=== PATIENT | male | born 1975 | race Caucasian/White ===

== ENCOUNTER 2018-02-06 13:04 | Observation (INO) | payer SELFPAY ==
[2018-02-06] MEDS ORDERED: Aspirin 81 MG Tab.Chew PO ONE (13:10)
[2018-02-06] MEDS ORDERED: Enoxaparin 100 MG/1 ML Syringe SUBCUT ONE (13:10)
[2018-02-06] MEDS ORDERED: Sodium Chloride 0.9% 2.5 ML Syringe FLUSH PRN (13:10)
[2018-02-06] MEDS ORDERED: Sodium Chloride 0.9% 10 ML Syringe FLUSH PRN (13:10)
[2018-02-06] MEDS ORDERED: Nitroglycerin 2% Oint 1 GM UD Packet TOP ONE (13:10)
--- NOTE | 2018-02-06 13:13 | EDM.PDOC ---
ED HPI GENERAL MEDICAL PROBLEM - General Chief Complaint: Chest Pain Stated Complaint: CHEST PAIN Time Seen by Provider: 02/06/18 13:10 - History of Present Illness INITIAL COMMENTS - FREE TEXT/NARRATIVE: HISTORY AND PHYSICAL: History of present illness: Patient's a 42-year-old white male with an unclear cardiac history but describes some type of thromboembolic cardiopulmonary phenomenon and for which he was on Coumadin for 1 month which was discontinued due to patient's intolerance of it he was changed to aspirin daily he denies ever having had a heart attack and cannot give any more details regarding this event. Patient presents today with shortness of breath and pleuritic chest pain started yesterday and became more acute prior to arrival is quite anxious on arrival. There's been no palpitations vomiting he has had some diaphoresis Review of systems: As per history of present illness and below otherwise all systems reviewed and negative. Past medical history: As per history of present illness and as reviewed below otherwise noncontributory. Surgical history: As per history of present illness and as reviewed below otherwise noncontributory. Social history: No reported history of drug or alcohol abuse. Family history: As per history of present illness and as reviewed below otherwise noncontributory. Physical exam: HEENT: Atraumatic, normocephalic, pupils reactive, negative for conjunctival pallor or scleral icterus, mucous membranes moist, throat clear, neck supple, nontender, trachea midline. Lungs: Clear to auscultation, breath sounds equal bilaterally, chest nontender. Heart: S1S2, regular, negative for clicks, rubs, or JVD. Abdomen: Soft, nondistended, nontender. Negative for masses or hepatosplenomegaly. Negative for costovertebral tenderness. Pelvis: Stable nontender. Genitourinary: Deferred. Rectal: Deferred. Extremities: Atraumatic, negative for cords or calf pain. Neurovascular unremarkable. Neuro: Awake, alert, oriented. Cranial nerves II through XII unremarkable. Cerebellum unremarkable. Motor and sensory unremarkable throughout. Exam nonfocal. Diagnostics: CBC CMP PT/INR troponin chest x-ray EKG d-dimer CTA chest Therapeutics: IV O2 monitor Lovenox milligram per kilogram subcutaneous aspirin 324 mg Nitropaste 1 inch Impression: #1 pleuritic chest pain #2 history of thromboembolic disease Definitive disposition and diagnosis as appropriate pending reevaluation and review of above. chest Pain Score (Numeric/FACES): 7 - Related Data Allergies Allergy/AdvReac Type Severity Reaction Status Date / Time No Known Allergies Allergy Verified 02/06/18 13:09 Home Meds: Home Meds . [No Known Home Meds] 02/06/18 [History] ED ROS GENERAL - Review of Systems Review Of Systems: ROS reveals no pertinent complaints other than HPI. ED EXAM, GENERAL - Physical Exam Exam: See Below (dictation) Course - Vital Signs Last Recorded V/S: Last Vital Signs Temp 36.4 C 02/06/18 13:09 Pulse 84 02/06/18 14:58 Resp 16 02/06/18 14:58 BP 126/77 02/06/18 14:58 Pulse Ox 96 02/06/18 14:58 - Orders/Labs/Meds Orders: Active Orders 24 hr Category Date Time Status Cardiac Monitoring [RC] . DIRECTED Care 02/06/18 13:10 Active EKG 12 Lead [EKG Documentation Completion] [RC] STAT Care 02/06/18 14:11 Active EKG Documentation Completion [RC] STAT Care 02/06/18 13:10 Active Oxygen Therapy, ED [RC] ASDIRECTED Care 02/06/18 13:10 Active Pulse Oximetry [RC] ASDIRECTED Care 02/06/18 13:10 Active DRUG SCREEN, URINE [URCHEM] Stat Lab 02/06/18 13:10 Ordered UA W/MICROSCOPIC [URIN] Stat Lab 02/06/18 13:10 Ordered Sodium Chloride 0.9% [Normal Saline] 1,000 ml Med 02/06/18 13:15 Active IV STAT Sodium Chloride 0.9% [Saline Flush] Med 02/06/18 13:10 Active 10 ml FLUSH ASDIRECTED PRN Sodium Chloride 0.9% [Saline Flush] Med 02/06/18 13:10 Active 2.5 ml FLUSH ASDIRECTED PRN Saline Lock Insert [OM.PC] Stat Oth 02/06/18 13:10 Ordered Medication Orders Sodium Chloride (Normal Saline) 1,000 mls @ 125 mls/hr IV STAT JOSE Last Admin: 02/06/18 13:21 Dose: 125 mls/hr Sodium Chloride (Saline Flush) 10 ml FLUSH ASDIRECTED PRN PRN Reason: Keep Vein Open Sodium Chloride (Saline Flush) 2.5 ml FLUSH ASDIRECTED PRN PRN Reason: Keep Vein Open Labs: Laboratory Tests 02/06/18 02/06/18 02/06/18 Range/Units 13:03 13:03 13:03 WBC 13.07 H (4.0-11.0) K/uL RBC 5.38 (4.50-5.90) M/uL Hgb 16.5 (13.0-17.0) g/dL Hct 46.0 (38.0-50.0) % MCV 85.5 (80.0-98.0) fL MCH 30.7 (27.0-32.0) pg MCHC 35.9 (31.0-37.0) g/dL RDW Std Deviation 39.9 (28.0-62.0) fl RDW Coeff of Cuca 13 (11.0-15.0) % Plt Count 195 (150-400) K/uL MPV 10.00 (7.40-12.00) fL Neut % (Auto) 63.9 (48.0-80.0) % Lymph % (Auto) 19.1 (16.0-40.0) % Wallace % (Auto) 10.1 (0.0-15.0) % Eos % (Auto) 6.7 (0.0-7.0) % Baso % (Auto) 0.2 (0.0-1.5) % Neut # (Auto) 8.4 H (1.4-5.7) K/uL Lymph # (Auto) 2.5 H (0.6-2.4) K/uL Wallace # (Auto) 1.3 H (0.0-0.8) K/uL Eos # (Auto) 0.9 H (0.0-0.7) K/uL Baso # (Auto) 0.0 (0.0-0.1) K/uL Nucleated RBC % 0.0 /100WBC Nucleated RBCs # 0 K/uL INR 0.98 D-Dimer, Quantitative 0.25 (0.0-0.52) mg/LFEU Sodium 142 (136-148) mmol/L Potassium 3.6 (3.5-5.1) mmol/L Chloride 104 (98-107) mmol/L Carbon Dioxide 28.2 (21.0-32.0) mmol/L BUN 14 (7.0-18.0) mg/dL Creatinine 1.0 (0.8-1.3) mg/dL Est Cr Clr Drug Dosing TNP Estimated GFR (MDRD) > 60.0 ml/min Glucose 83 (74-106) mg/dL Calcium 9.2 (8.5-10.1) mg/dL Total Bilirubin 1.7 H (0.2-1.0) mg/dL AST 16 (15-37) IU/L ALT 22 (14-63) IU/L Alkaline Phosphatase 109 (46-116) U/L Troponin I < 0.050 (0.000-0.056) ng/mL B-Natriuretic Peptide (<100) PG/ML Total Protein 8.0 (6.4-8.2) g/dL Albumin 4.2 (3.4-5.0) g/dL Globulin 3.8 H (2.0-3.5) g/dL Albumin/Globulin Ratio 1.1 L (1.3-2.8) 02/06/18 Range/Units 13:03 WBC (4.0-11.0) K/uL RBC (4.50-5.90) M/uL Hgb (13.0-17.0) g/dL Hct (38.0-50.0) % MCV (80.0-98.0) fL MCH (27.0-32.0) pg MCHC (31.0-37.0) g/dL RDW Std Deviation (28.0-62.0) fl RDW Coeff of Cuca (11.0-15.0) % Plt Count (150-400) K/uL MPV (7.40-12.00) fL Neut % (Auto) (48.0-80.0) % Lymph % (Auto) (16.0-40.0) % Wallace % (Auto) (0.0-15.0) % Eos % (Auto) (0.0-7.0) % Baso % (Auto) (0.0-1.5) % Neut # (Auto) (1.4-5.7) K/uL Lymph # (Auto) (0.6-2.4) K/uL Wallace # (Auto) (0.0-0.8) K/uL Eos # (Auto) (0.0-0.7) K/uL Baso # (Auto) (0.0-0.1) K/uL Nucleated RBC % /100WBC Nucleated RBCs # K/uL INR D-Dimer, Quantitative (0.0-0.52) mg/LFEU Sodium (136-148) mmol/L Potassium (3.5-5.1) mmol/L Chloride (98-107) mmol/L Carbon Dioxide (21.0-32.0) mmol/L BUN (7.0-18.0) mg/dL Creatinine (0.8-1.3) mg/dL Est Cr Clr Drug Dosing Estimated GFR (MDRD) ml/min Glucose (74-106) mg/dL Calcium (8.5-10.1) mg/dL Total Bilirubin (0.2-1.0) mg/dL AST (15-37) IU/L ALT (14-63) IU/L Alkaline Phosphatase (46-116) U/L Troponin I (0.000-0.056) ng/mL B-Natriuretic Peptide < 15 (<100) PG/ML Total Protein (6.4-8.2) g/dL Albumin (3.4-5.0) g/dL Globulin (2.0-3.5) g/dL Albumin/Globulin Ratio (1.3-2.8) Meds: Medications Generic Name Dose Route Start Last Admin Trade Name Freq PRN Reason Stop Dose Admin Sodium Chloride 1,000 mls @ 125 mls/hr 02/06/18 13:15 02/06/18 13:21 Normal Saline IV 125 mls/hr STAT JOSE Administration Sodium Chloride 10 ml 02/06/18 13:10 Saline Flush FLUSH ASDIRECTED PRN Keep Vein Open Sodium Chloride 2.5 ml 02/06/18 13:10 Saline Flush FLUSH ASDIRECTED PRN Keep Vein Open Discontinued Medications Generic Name Dose Route Start Last Admin Trade Name Freq PRN Reason Stop Dose Admin Aspirin 324 mg 02/06/18 13:10 02/06/18 13:10 Aspirin PO 02/06/18 13:11 324 mg ONETIME ONE Administration Enoxaparin Sodium 100 mg 02/06/18 13:10 02/06/18 13:18 Lovenox SUBCUT 02/06/18 13:11 100 mg ONETIME ONE Administration Iopamidol 60 ml 02/06/18 14:42 02/06/18 14:45 Isovue-370 (76%) IVPUSH 02/06/18 14:43 60 ml ONETIME ONE Administration Ketorolac Tromethamine 30 mg 02/06/18 14:21 02/06/18 14:52 Toradol IVPUSH 02/06/18 14:22 30 mg ONETIME ONE Administration Nitroglycerin 1 gm 02/06/18 13:10 02/06/18 13:18 Nitro-Bid 2% TOP 02/06/18 13:11 1 gm ONETIME ONE Administration Departure - Departure Time of Disposition: 15:02 Disposition: Refer to Observation Condition: Good Clinical Impression: Chest pain - Discharge Information Referrals: PCP,None [Primary Care Provider] - Forms: ED Department Discharge - My Orders Last 24 Hours: My Active Orders 02/06/18 13:10 Cardiac Monitoring [RC] . DIRECTED EKG Documentation Completion [RC] STAT Oxygen Therapy, ED [RC] ASDIRECTED Pulse Oximetry [RC] ASDIRECTED DRUG SCREEN, URINE [URCHEM] Stat UA W/MICROSCOPIC [URIN] Stat Sodium Chloride 0.9% [Saline Flush] 10 ml FLUSH ASDIRECTED PRN Sodium Chloride 0.9% [Saline Flush] 2.5 ml FLUSH ASDIRECTED PRN Saline Lock Insert [OM.PC] Stat 02/06/18 13:15 Sodium Chloride 0.9% [Normal Saline] 1,000 ml IV STAT 02/06/18 14:11 EKG 12 Lead [EKG Documentation Completion] [RC] STAT - Assessment/Plan Last 24 Hours: My Active Orders 02/06/18 13:10 Cardiac Monitoring [RC] . DIRECTED EKG Documentation Completion [RC] STAT Oxygen Therapy, ED [RC] ASDIRECTED Pulse Oximetry [RC] ASDIRECTED DRUG SCREEN, URINE [URCHEM] Stat UA W/MICROSCOPIC [URIN] Stat Sodium Chloride 0.9% [Saline Flush] 10 ml FLUSH ASDIRECTED PRN Sodium Chloride 0.9% [Saline Flush] 2.5 ml FLUSH ASDIRECTED PRN Saline Lock Insert [OM.PC] Stat 02/06/18 13:15 Sodium Chloride 0.9% [Normal Saline] 1,000 ml IV STAT 02/06/18 14:11 EKG 12 Lead [EKG Documentation Completion] [RC] STAT
[2018-02-06] MEDS: Sodium Chloride 0.9% 1,000 ML IV SCH ×3 (13:21→23:00)
[2018-02-06 13:48] LABS: CHLORIDE,CL 104 mmol/L (98-107); SODIUM,NA 142 mmol/L (136-148)
[2018-02-06] MEDS ORDERED: Ketorolac 30 MG/ML SDV IVPUSH ONE (14:21)
[2018-02-06] MEDS ORDERED: Iopamidol 755 Mg/ML 100 ML Bottle IVPUSH ONE (14:42)
--- NOTE | 2018-02-06 14:59 | CT ---
EXAMINATION: CTA chest HISTORY: Pain COMPARISON: Radiographs dated 11/14/2017 TECHNIQUE: Axial CT images obtained through the chest following the administration of 60 mL of Isovue -370 left antecubital fossa. Coronal and sagittal reconstructions obtained. FINDINGS: There is an area of consolidation within the superior left lower lobe. Trace left pleural e ffusion. Tiny calcified granuloma within the lateral right upper lobe. The heart is normal in size wi thout a pericardial effusion. A few mildly prominent left hilar lymph nodes noted. Central airways ar e clear. Thoracic aorta is normal in caliber. The main and central pulmonary arteries are patent. No axillary lymphadenopathy. The visualized images of the upper abdomen appear normal. No suspicious osseous abnormalities identified. IMPRESSION: 1. Left lower lobe consolidation likely representing pneumonia. 2. Left hilar lymphadenopathy likely reactive. 3. No pulmonary embolism identified.
[2018-02-06] MEDS ORDERED: Albuterol/Ipratropium 3.0-0.5 MG/3 ML Neb Soln NEB PRN (16:32)
[2018-02-06] MEDS ORDERED: Ondansetron 4 MG Tab.DIS PO PRN (16:32)
[2018-02-06] MEDS ORDERED: Azithromycin 250 MG Tab PO SCH (16:45)
[2018-02-06] MEDS ORDERED: Enoxaparin 40 MG/0.4 ML Syringe SUBCUT SCH (16:45)
[2018-02-06] MEDS: Levofloxacin/Dextrose 5%-Water 750 MG in Premix Bag 1 BAG IV ONE ×2 (16:58→17:04)
--- NOTE | 2018-02-06 17:01 | PCM.HP ---
H&P History of Present Illness - General Date of Service: 02/06/18 Admit Problem/Dx: Admission Diagnosis/Problem Admission Diagnosis/Problem Chest pain Source of Information: Patient History Limitations: Reports: No Limitations - History of Present Illness Initial Comments - Free Text/Narative: 42-year-old male presented to the ER with left-sided chest pain. Patient was worried because there is a history of the patient having prior clots in his lungs. He was on Coumadin for 1 month but this was discontinued because the patient was unable to tolerate it. He was subsequently switched to aspirin. He has some mild shortness of breath and a sharp pain on the left side of his chest with deep inspiration. This started yesterday and has continually gotten worse. The pain does not radiate and he denies any diaphoresis, nausea, vomiting , palpitations, calf pain. No prior history of heart attack or stroke. Patient denies any drug use. He does smoke one pack per day over the past 18 years. Patient has not been sick recently. He does not take any medications at home. ER course: CBC shows a mildly elevated white count of 13,000. D-dimer was negative. Chest CT showed no evidence of PE but did show a left lower lobe infiltrate consistent with pneumonia. CMP and initial troponin were negative. Patient was requiring 2 L nasal cannula to maintain his oxygen saturation greater than 94%. chest Pain Score (Numeric/FACES): 7 - Related Data Allergies/Adverse Reactions: Allergies Allergy/AdvReac Type Severity Reaction Status Date / Time No Known Allergies Allergy Verified 02/06/18 13:09 Home Medications: Home Meds . [No Known Home Meds] 02/06/18 [History] Past Medical History HEENT History: Reports: None Cardiovascular History: Reports: Other (See Below) Other Cardiovascular History: reports blot clot in heart Respiratory History: Reports: None Gastrointestinal History: Reports: None Genitourinary History: Reports: None Musculoskeletal History: Reports: Other (See Below) Neurological History: Reports: None Psychiatric History: Reports: None Endocrine/Metabolic History: Reports: None Hematologic History: Reports: None Immunologic History: Reports: None Oncologic (Cancer) History: Reports: None Dermatologic History: Reports: None - Past Surgical History Head Surgeries/Procedures: Reports: None HEENT Surgical History: Reports: None Cardiovascular Surgical History: Reports: None Respiratory Surgical History: Reports: None GI Surgical History: Reports: None Male Surgical History: Reports: None Endocrine Surgical History: Reports: None Neurological Surgical History: Reports: None Musculoskeletal Surgical History: Reports: None Oncologic Surgical History: Reports: None Dermatological Surgical History: Reports: None Social & Family History - Family History Family Medical History: Noncontributory - Tobacco Use Smoking Status *Q: Current Every Day Smoker Years of Tobacco use: 18 Packs/Tins Daily: 0.5 Used Tobacco, but Quit: No Second Hand Smoke Exposure: No - Caffeine Use Caffeine Use: Reports: Coffee, Soda - Alcohol Use Date of Last Drink: 02/04/18 - Recreational Drug Use Recreational Drug Use: No H&P Review of Systems - Review of Systems: Review Of Systems: See Below General: Reports: No Symptoms HEENT: Reports: No Symptoms Pulmonary: Reports: No Symptoms Cardiovascular: Reports: Chest Pain Gastrointestinal: Reports: No Symptoms Genitourinary: Reports: No Symptoms Musculoskeletal: Reports: No Symptoms Skin: Reports: No Symptoms Psychiatric: Reports: No Symptoms Neurological: Reports: No Symptoms Hematologic/Lymphatic: Reports: No Symptoms Immunologic: Reports: No Symptoms Exam - Exam Exam: See Below - Vital Signs Vital Signs: Last Vital Signs Temp 97.6 F 02/06/18 13:09 Pulse 84 02/06/18 14:58 Resp 16 02/06/18 14:58 BP 126/77 02/06/18 14:58 Pulse Ox 96 02/06/18 14:58 Weight: 487 lb 3.545 oz - Exam Quality Assessment: DVT Prophylaxis (SCDs, Lovenox) General: Alert, Oriented, Cooperative HEENT: Conjunctiva Clear, Hearing Intact, Mucosa Moist & [place]ck: Supple, Trachea Midline, 2 Lungs: Clear to Auscultation, Normal Respiratory Effort Cardiovascular: Regular Rate, Regular Rhythm GI/Abdominal Exam: Normal Bowel Sounds, Soft, Non-Tender, No Organomegaly, No Distention, No Abnormal Bruit, No Mass, Pelvis Stable Extremities: Normal Inspection, Normal Range of Motion, Non-Tender, No Pedal Edema, Normal Capillary Refill Peripheral Pulses: 2+: Radial (L), Radial (R), Posterior Tibial (L), Posterior Tibial (R) Skin: Warm, Dry, Intact Neuro Extensive - Mental Status: Alert, Oriented x3, Normal Mood/Affect, Normal Cognition Psychiatric: Alert, Normal Affect, Normal Mood - Patient Data Lab Results Last 24 hrs: Laboratory Results - last 24 hr 02/06/18 02/06/18 02/06/18 Range/Units 13:03 13:03 13:03 WBC 13.07 H (4.0-11.0) K/uL RBC 5.38 (4.50-5.90) M/uL Hgb 16.5 (13.0-17.0) g/dL Hct 46.0 (38.0-50.0) % MCV 85.5 (80.0-98.0) fL MCH 30.7 (27.0-32.0) pg MCHC 35.9 (31.0-37.0) g/dL RDW Std Deviation 39.9 (28.0-62.0) fl RDW Coeff of Cuca 13 (11.0-15.0) % Plt Count 195 (150-400) K/uL MPV 10.00 (7.40-12.00) fL Neut % (Auto) 63.9 (48.0-80.0) % Lymph % (Auto) 19.1 (16.0-40.0) % [place] % (Auto) 10.1 (0.0-15.0) % Eos % (Auto) 6.7 (0.0-7.0) % Baso % (Auto) 0.2 (0.0-1.5) % Neut # (Auto) 8.4 H (1.4-5.7) K/uL Lymph # (Auto) 2.5 H (0.6-2.4) K/uL [place] # (Auto) 1.3 H (0.0-0.8) K/uL Eos # (Auto) 0.9 H (0.0-0.7) K/uL Baso # (Auto) 0.0 (0.0-0.1) K/uL Nucleated RBC % 0.0 /100WBC Nucleated RBCs # 0 K/uL INR 0.98 D-Dimer, Quantitative 0.25 (0.0-0.52) mg/LFEU Sodium 142 (136-148) mmol/L Potassium 3.6 (3.5-5.1) mmol/L Chloride 104 (98-107) mmol/L Carbon Dioxide 28.2 (21.0-32.0) mmol/L BUN 14 (7.0-18.0) mg/dL Creatinine 1.0 (0.8-1.3) mg/dL Est Cr Clr Drug Dosing TNP Estimated GFR (MDRD) > 60.0 ml/min Glucose 83 (74-106) mg/dL Calcium 9.2 (8.5-10.1) mg/dL Total Bilirubin 1.7 H (0.2-1.0) mg/dL AST 16 (15-37) IU/L ALT 22 (14-63) IU/L Alkaline Phosphatase 109 (46-116) U/L Troponin I < 0.050 (0.000-0.056) ng/mL B-Natriuretic Peptide (<100) PG/ML Total Protein 8.0 (6.4-8.2) g/dL Albumin 4.2 (3.4-5.0) g/dL Globulin 3.8 H (2.0-3.5) g/dL Albumin/Globulin Ratio 1.1 L (1.3-2.8) 02/06/18 Range/Units 13:03 WBC (4.0-11.0) K/uL RBC (4.50-5.90) M/uL Hgb (13.0-17.0) g/dL Hct (38.0-50.0) % MCV (80.0-98.0) fL MCH (27.0-32.0) pg MCHC (31.0-37.0) g/dL RDW Std Deviation (28.0-62.0) fl RDW Coeff of Cuca (11.0-15.0) % Plt Count (150-400) K/uL MPV (7.40-12.00) fL Neut % (Auto) (48.0-80.0) % Lymph % (Auto) (16.0-40.0) % [place] % (Auto) (0.0-15.0) % Eos % (Auto) (0.0-7.0) % Baso % (Auto) (0.0-1.5) % Neut # (Auto) (1.4-5.7) K/uL Lymph # (Auto) (0.6-2.4) K/uL [place] # (Auto) (0.0-0.8) K/uL Eos # (Auto) (0.0-0.7) K/uL Baso # (Auto) (0.0-0.1) K/uL Nucleated RBC % /100WBC Nucleated RBCs # K/uL INR D-Dimer, Quantitative (0.0-0.52) mg/LFEU Sodium (136-148) mmol/L Potassium (3.5-5.1) mmol/L Chloride (98-107) mmol/L Carbon Dioxide (21.0-32.0) mmol/L BUN (7.0-18.0) mg/dL Creatinine (0.8-1.3) mg/dL Est Cr Clr Drug Dosing Estimated GFR (MDRD) ml/min Glucose (74-106) mg/dL Calcium (8.5-10.1) mg/dL Total Bilirubin (0.2-1.0) mg/dL AST (15-37) IU/L ALT (14-63) IU/L Alkaline Phosphatase (46-116) U/L Troponin I (0.000-0.056) ng/mL B-Natriuretic Peptide < 15 (<100) PG/ML Total Protein (6.4-8.2) g/dL Albumin (3.4-5.0) g/dL Globulin (2.0-3.5) g/dL Albumin/Globulin Ratio (1.3-2.8) Result Diagrams: 02/06/18 13:03 02/06/18 13:03 - Problem List (1) Pneumonia SNOMED Code(s): 113644493 ICD Code: J18.9 - PNEUMONIA, UNSPECIFIED ORGANISM Status: Acute Priority : High Current Visit: Yes (2) Chest pain SNOMED Code(s): 77057721 ICD Code: R07.9 - CHEST PAIN, UNSPECIFIED Status: Acute Priority: High Current Visit: Yes Problem List Initiated/Reviewed/Updated: Yes Orders Last 24hrs: Active Orders 24 hr Category Date Time Status Patient Status [ADT] Stat ADT 02/06/18 15:03 Active Cardiac Monitoring [RC] Q8H Care 02/06/18 13:10 Active EKG 12 Lead [EKG Documentation Completion] [RC] STAT Care 02/06/18 14:11 Active EKG Documentation Completion [RC] STAT Care 02/06/18 13:10 Active Height and Weight [RC] DAILY Care 02/06/18 16:29 Active Intake and Output [RC] QSHIFT Care 02/06/18 16:30 Active Notify Provider Vital Signs [RC] ASDIRECTED Care 02/06/18 16:31 Active Oxygen Therapy [RC] PRN Care 02/06/18 16:29 Active Oxygen Therapy [RC] PRN Care 02/06/18 16:32 Active Oxygen Therapy, ED [RC] ASDIRECTED Care 02/06/18 13:10 Active Pulse Oximetry [RC] ASDIRECTED Care 02/06/18 13:10 Active Pulse Oximetry [RC] PRN Care 02/06/18 16:30 Active RT Aerosol Therapy [RC] ASDIRECTED Care 02/06/18 16:37 Active Up With Assistance [RC] ASDIRECTED Care 02/06/18 16:29 Active VTE/DVT Education [RC] PER UNIT ROUTINE Care 02/06/18 16:29 Active VTE/DVT Education [RC] PER UNIT ROUTINE Care 02/06/18 16:32 Active Vital Signs [RC] Q4H Care 02/06/18 16:29 Active Vital Signs [RC] Q4H Care 02/06/18 16:32 Active Heart Healthy Diet [DIET] Diet 02/06/18 Breakfast Active BASIC METABOLIC PANEL,BMP [CHEM] AM Lab 02/07/18 05:11 Ordered BASIC METABOLIC PANEL,BMP [CHEM] AM Lab 02/08/18 05:11 Ordered BASIC METABOLIC PANEL,BMP [CHEM] AM Lab 02/09/18 05:11 Ordered CBC WITH AUTO DIFF [HEME] AM Lab 02/07/18 05:11 Ordered CBC WITH AUTO DIFF [HEME] AM Lab 02/08/18 05:11 Ordered CBC WITH AUTO DIFF [HEME] AM Lab 02/09/18 05:11 Ordered DRUG SCREEN, URINE [URCHEM] Stat Lab 02/06/18 13:10 Ordered MAGNESIUM [CHEM] Routine Lab 02/06/18 13:03 Received TROPONIN I [CHEM] Q6H Lab 02/06/18 19:00 Ordered TROPONIN I [CHEM] Q6H Lab 02/07/18 01:00 Ordered UA W/MICROSCOPIC [URIN] Stat Lab 02/06/18 13:10 Ordered Acetaminophen [Tylenol] Med 02/06/18 16:32 Active 650 mg PO Q4H PRN Albuterol/Ipratropium [DuoNeb 3.0-0.5 MG/3 ML] Med 02/06/18 16:32 Active 3 ml NEB Q4HRRT PRN Azithromycin [Zithromax] Med 02/06/18 16:45 Active 500 mg PO Q24H Enoxaparin [Lovenox] Med 02/06/18 16:45 Active 40 mg SUBCUT Q24H Levofloxacin/Dextrose 5%-Water [Levaquin in D5W 750 MG/ Med 02/06/18 16:38 Active 150 ML] 750 mg Premix Bag 1 bag IV ONETIME Ondansetron [Zofran ODT] Med 02/06/18 16:32 Active 4 mg PO Q4H PRN Sodium Chloride 0.9% [Normal Saline] 1,000 ml Med 02/06/18 13:15 Active IV STAT Sodium Chloride 0.9% [Saline Flush] Med 02/06/18 13:10 Active 10 ml FLUSH ASDIRECTED PRN Sodium Chloride 0.9% [Saline Flush] Med 02/06/18 13:10 Active 2.5 ml FLUSH ASDIRECTED PRN cefTRIAXone [Rocephin] 1,000 mg Med 02/06/18 18:00 Active Dextrose 5% in Water 50 ml IV Q24H Saline Lock Insert [OM.PC] Stat Oth 02/06/18 13:10 Ordered Sequential Compression Device [OM.PC] Per Unit Routine Oth 02/06/18 16:32 Ordered Medication Orders Acetaminophen (Tylenol) 650 mg PO Q4H PRN PRN Reason: Pain (Mild 1-3)/fever Albuterol/Ipratropium (Duoneb 3.0-0.5 Mg/3 Ml) 3 ml NEB Q4HRRT PRN PRN Reason: Shortness Of Breath/wheezing Azithromycin (Zithromax) 500 mg PO Q24H JOSE Enoxaparin Sodium (Lovenox) 40 mg SUBCUT Q24H JOSE Sodium Chloride (Normal Saline) 1,000 mls @ 125 mls/hr IV STAT JOSE Last Admin: 02/06/18 16:34 Dose: 125 mls/hr Infusion: 02/06/18 16:34 Dose: 125 mls/hr Admin: 02/06/18 13:21 Dose: 125 mls/hr Levofloxacin/Dextrose 750 mg/ (Premix) 150 mls @ 100 mls/hr IV ONETIME ONE Stop: 02/06/18 18:07 Ceftriaxone Sodium 1,000 mg/ (Dextrose/Water) 50 mls @ 100 mls/hr IV Q24H JOSE Ondansetron HCl (Zofran Odt) 4 mg PO Q4H PRN PRN Reason: nausea, able to take PO Sodium Chloride (Saline Flush) 10 ml FLUSH ASDIRECTED PRN PRN Reason: Keep Vein Open Sodium Chloride (Saline Flush) 2.5 ml FLUSH ASDIRECTED PRN PRN Reason: Keep Vein Open Assessment/Plan Comment:: 42-year-old male being admitted with chest pain most likely secondary to left- sided pneumonia. #1. Left-sided pneumonia: -Patient will be started on Rocephin and azithromycin IV. -Tylenol available as needed for fever or pain. -Follow white count with daily CBC. #2. Chest pain: -This is most likely secondary to the patient's left-sided pneumonia. However, we will trend his troponins. -Patient will be placed on telemetry. -Magnesium is pending. DVT prophylaxis: SCDs, Lovenox. Disposition: 1-2 days pending improvement.
[2018-02-06] MEDS ORDERED: cefTRIAXone 1,000 MG in Dextrose 5% in Water 50 ML IV SCH ×2 (18:00)
[2018-02-06] MEDS: Acetaminophen 325 MG Tab PO PRN (19:40)
[2018-02-06] MEDS: traMADol 50 MG Tab PO PRN (21:03)
[2018-02-07] MEDS: Acetaminophen 325 MG Tab PO PRN (06:16)
[2018-02-07 06:22] LABS: CHLORIDE,CL 108 mmol/L (98-107); SODIUM,NA 142 mmol/L (136-148)
[2018-02-07 08:08] VITALS: BP 133/71
[2018-02-07] MEDS: traMADol 50 MG Tab PO PRN (08:11)
[2018-02-07] MEDS: Sodium Chloride 0.9% 1,000 ML IV SCH (08:13)
--- NOTE | 2018-02-08 14:18 | PCM.DCSUM1 ---
Discharge Summary - Hospital Course Free Text/Narrative:: Admission diagnosis: #1. Chest pain likely secondary to pneumonia Discharge diagnosis: #2. Chest pain likely secondary to pneumonia, improved 42-year-old male that was admitted with chest pain and for an ACS rule out. Patient presented to the ER with chest pain. Initial white blood cell count was 13.1. He does have a history of a clotting disorder and so a CT chest was done which showed no evidence of PE but did show a left lower lobe infiltrate. Patient was subsequently started on azithromycin and Rocephin. His white blood cell count improved to 9.2 at the time of discharge. Serial troponins 3 were negative. BNP, UA, toxicology screen and d-dimer were all negative. CMP was unremarkable. Patient was placed on telemetry which showed normal sinus rhythm and a heart rate of 50-70 bpm. At the time of discharge, the patient was tolerating oral intake, voiding appropriately and ambulating without assistance. Chest pain had improved significantly from admission. - Discharge Data Discharge Date: 02/07/18 Discharge Disposition: Home, Self-Care 01 Condition: Stable - Discharge Diagnosis/Problem(s) (1) Pneumonia SNOMED Code(s): 346415846 ICD Code: J18.9 - PNEUMONIA, UNSPECIFIED ORGANISM Status: Acute Priority : High (2) Chest pain SNOMED Code(s): 11917724 ICD Code: R07.9 - CHEST PAIN, UNSPECIFIED Status: Acute Priority: High - Patient Instructions Diet: Usual Diet as Tolerated Activity: As Tolerated Driving: May Drive Today Showering/Bathing: May Shower Notify Provider of: Fever, Increased Pain, Nausea and/or Vomiting - Discharge Plan Prescriptions/Med Rec: Azithromycin 500 mg PO DAILY #5 tablet Home Medications: Home Meds Azithromycin 500 mg PO DAILY #5 tablet 02/07/18 [Rx] Patient Handouts: Azithromycin tablets, Community-Acquired Pneumonia, Adult, [id number] Referrals: Ludwin Daniel MD [Resident] - 02/15/18 2:30 pm - Discharge Summary/Plan Comment DC Time >30 min.: No Discharge Summary/Plan Comment: Admission diagnosis: #1. Chest pain likely secondary to pneumonia Discharge diagnosis: #2. Chest pain likely secondary to pneumonia, improved 42-year-old male that was admitted with chest pain and for an ACS rule out. Patient presented to the ER with chest pain. Initial white blood cell count was 13.1. He does have a history of a clotting disorder and so a CT chest was done which showed no evidence of PE but did show a left lower lobe infiltrate. Patient was subsequently started on azithromycin and Rocephin. His white blood cell count improved to 9.2 at the time of discharge. Serial troponins 3 were negative. BNP, UA, toxicology screen and d-dimer were all negative. CMP was unremarkable. Patient was placed on telemetry which showed normal sinus rhythm and a heart rate of 50-70 bpm. At the time of discharge, the patient was tolerating oral intake, voiding appropriately and ambulating without assistance. Chest pain had improved significantly from admission. Discharge plan: #1. Prescription given for azithromycin 500 mg daily for the next 5 days. #2. Patient will follow-up with his PCP, Dr. Daniel. - Patient Data Vitals - Most Recent: Last Vital Signs Temp 97.2 F 02/07/18 08:00 Pulse 77 02/07/18 08:00 Resp 18 02/07/18 08:00 BP 133/71 02/07/18 08:00 Pulse Ox 97 02/07/18 08:00 Weight - Most Recent: 487 lb 3.545 oz Med Orders - Current: Current Medications Discontinued Medications Acetaminophen (Tylenol) 650 mg PO Q4H PRN PRN Reason: Pain (Mild 1-3)/fever Last Admin: 02/07/18 06:16 Dose: 650 mg Albuterol/Ipratropium (Duoneb 3.0-0.5 Mg/3 Ml) 3 ml NEB Q4HRRT PRN PRN Reason: Shortness Of Breath/wheezing Aspirin (Aspirin) 324 mg PO ONETIME ONE Stop: 02/06/18 13:11 Last Admin: 02/06/18 13:10 Dose: 324 mg Azithromycin (Zithromax) 500 mg PO Q24H JOSE Last Admin: 02/06/18 16:58 Dose: 500 mg Enoxaparin Sodium (Lovenox) 100 mg SUBCUT ONETIME ONE Stop: 02/06/18 13:11 Last Admin: 02/06/18 13:18 Dose: 100 mg Enoxaparin Sodium (Lovenox) 40 mg SUBCUT Q24H JOSE Last Admin: 02/06/18 17:08 Dose: Not Given Sodium Chloride (Normal Saline) 1,000 mls @ 125 mls/hr IV STAT JOSE Last Infusion: 02/06/18 22:50 Dose: 125 mls/hr Levofloxacin/Dextrose 750 mg/ (Premix) 150 mls @ 100 mls/hr IV ONETIME ONE Stop: 02/06/18 18:07 Last Admin: 02/06/18 17:04 Dose: Not Given Ceftriaxone Sodium 1,000 mg/ (Dextrose/Water) 50 mls @ 100 mls/hr IV Q24H JOSE Last Admin: 02/06/18 17:27 Dose: 100 mls/hr Sodium Chloride (Normal Saline) 1,000 mls @ 125 mls/hr IV ASDIRECTED JOSE Last Admin: 02/07/18 08:13 Dose: 125 mls/hr Iopamidol (Isovue-370 (76%)) 60 ml IVPUSH ONETIME ONE Stop: 02/06/18 14:43 Last Admin: 02/06/18 14:45 Dose: 60 ml Ketorolac Tromethamine (Toradol) 30 mg IVPUSH ONETIME ONE Stop: 02/06/18 14:22 Last Admin: 02/06/18 14:52 Dose: 30 mg Nitroglycerin (Nitro-Bid 2%) 1 gm TOP ONETIME ONE Stop: 02/06/18 13:11 Last Admin: 02/06/18 13:18 Dose: 1 gm Ondansetron HCl (Zofran Odt) 4 mg PO Q4H PRN PRN Reason: nausea, able to take PO Sodium Chloride (Saline Flush) 10 ml FLUSH ASDIRECTED PRN PRN Reason: Keep Vein Open Sodium Chloride (Saline Flush) 2.5 ml FLUSH ASDIRECTED PRN PRN Reason: Keep Vein Open Tramadol HCl (Ultram) 50 mg PO Q6H PRN PRN Reason: Pain Last Admin: 02/07/18 08:11 Dose: 50 mg
== END 2018-02-07 12:00 | disposition home or self-care (01) ==
LOC: MW.ED 13:04 → MW.MS 15:03
PROVIDERS: ADMIT Internal Medicine; ATTEND Internal Medicine
DX: J18.9 Pneumonia, unspecified organism (principal); R07.9 Chest pain, unspecified; Z79.2 Long term (current) use of antibiotics
CPT/HCPCS: 36415; 71275; 80048; 80053; 80305; 81001; 83735; 83880; 84484; 85025; 85379; 85610; 93005; 96361; 96365; 96372; 96375; 99285; A9270; G0378; J0696; J1650; J1885; J7040; J7060; Q9967; 96374; J1956